=== PATIENT | female | born 1945 | race Caucasian/White ===

== ENCOUNTER → 2016-08-05 | Outpatient (CLI) | payer MEDICARE, OTHER ==
[2014-12-05 18:45] VITALS: BP 160/72
[~2016-08-05] MED LIST: AMLO10TA4 PO; ASPI81TA2 PO; CLON0.1T PO; CLON1PAT9 TD; CLOP75TA PO; CYAN1TAB28 PO; CYCL10TA2 PO; CYCL1DRO EACHEYE; CYCL1DRO OP; EZET10TA3 PO; FEXO180T81 PO; FLUT16SP NS; FLUT16SP2 NS; GABA-586 PO; GLYB2.5T2 PO; Hydrochlorothiazide PO; Isosorbide Mononitrate PO; LEVO100T5 PO; LORA0.5T96 PO; LOSA50TA2 PO; MELO7.5T5 PO; METF500T4 PO; METO100T2 PO; NITR0.4T6 SL; NYST15PO2 PO; OLAN2.5T3 PO; OMEP20TA PO; PITA2TAB2 PO; POTA10TA31 PO; SERT100T8 PO; TAPE50TA8 PO; TRAM-29 PO; VALS1TAB31 PO; VENTOLIN HFA18 GM IH
--- NOTE | 2016-08-05 23:36 | PAIN ---
DATE OF SERVICE: 08/05/2016 DIAGNOSES: Cervical radiculopathy with cervical degenerative disk disease and cervical spondylosis. HISTORY OF PRESENT ILLNESS: The patient is a 71-year-old female who returns for followup status post previous cervical epidural steroid injections, last in 12/2015. The patient did very well with these with about 50% improvement after her last injection, but the pain is returning now on the right side as it was previously on the left and left upper extremity, the right shoulder and right arm with radiating pain in the posterior aspect of the upper arm, forearm and into the hand with some tingling, numbness and some weakness in the right arm as well. The patient reports it is constant, it is hurting, twisting, sharp feeling in the right arm, base of the neck bilaterally in the upper shoulders, more on the right side as noted. The patient reports it is 8-9 on a scale of 10, worse with picking up objects, worse with using her upper extremity with any motion, even getting dressed or putting her arm through the sleeve and ____ is becoming very painful and difficult to do. Patient reports she is also waiting for MRI scan of the neck and the shoulder as she is afraid she has a rotator cuff tear. She has similar symptoms to that which she had on the left side when this occurred. The patient reports otherwise no new motor or sensory deficits, no new complaints. PHYSICAL EXAMINATION: VITAL SIGNS: Blood pressure 140/75, pulse 83, respirations 20, temperature 98.5 degrees Fahrenheit. Height 5 feet 4 inches, weighs 232 pounds. GENERAL: The patient is awake, alert, oriented, appropriate, very pleasant demeanor. HEENT: Head shows normocephalic, atraumatic. Extraocular movements intact, symmetrical. Oral cavity, mucous membranes are moist and pink. Dentition is intact. NECK: Shows anterior throat supple without palpable lymphadenopathy noted. Swallow reflex is symmetrical. BACK: Shows posterior cervical musculature with some moderate tenderness with palpation bilaterally in the middle and lower cervical paraspinous musculature without specific radiation, but with significant tenderness into the superior medial trapezius, more on the right than the left, but appears roughly symmetrical on inspection. The patient shows good rotation and motion both laterally greater than 45 degrees right and left as well as extension and flexion. EXTREMITIES: The patient's upper extremities show deep tendon reflexes at 1+ in the biceps and triceps tendons. Motor exam is approximately 4 on a scale of 5 with left it analyst and right it analyst and is symmetrical. The patient has significant tenderness with attempted ability to abduct the right shoulder past about 45 degrees with significant pain reported in the shoulder, back of the arm as well. This is also true with the shoulder shrug where it is intact and strong, but with significant pain and some loss of strength on resistance on the right side only. CHEST: Shows normal on inspection. Breath sounds clear to auscultation bilaterally. HEART: Shows S1 and S2 clear. ABDOMEN: Soft, nontender, nondistended. No palpable organomegaly is noted. PLAN: The patient's old chart was reviewed as her current medication regimen and updated. Current review of systems updated today as well and she is still currently taking her Plavix and we will check with her primary care physician to hold this as he has okayed this in the past. We will check with him once again to make sure that it is acceptable and deemed safe and appropriate to hold the Plavix for 7 days prior to cervical epidural steroid injection. The patient also will follow up with MRI scheduling for her neck and right upper extremity. We will try tramadol. The patient was given 50 mg tablets, 100 tablets to take q. 4-6h. Instructions, side effects to be aware of with the medications were also discussed. The patient will follow up once clearance is obtained from her ____ primary physician to hold the Plavix. JOVANNY AUGUSTINE MD DR: WALTER/santa JOB#: [id number] / [id number]
== END | disposition home or self-care (01) ==
LOC: PNCL 13:28
PROVIDERS: ATTEND Anesthesiology
DX: M50.10 Cervical disc disorder with radiculopathy, unspecified cervical region (principal); M47.892 Other spondylosis, cervical region
CPT/HCPCS: G0463

== ENCOUNTER → 2016-09-16 | Outpatient (CLI) | payer MEDICARE, OTHER ==
[2014-12-05 18:45] VITALS: BP 160/72
[~2016-09-16] MED LIST changes: +IOHEXOL 180 MG/ML 10 ML VIAL. ONE; +methylPREDNISolone ACETATE 40 MG/ML VIAL. ONE; +methylPREDNISolone ACETATE 80 MG/ML VIAL. ONE
--- NOTE | 2016-09-17 00:34 | PAIN ---
DATE OF SERVICE: 09/16/2016 DIAGNOSES: Cervical radiculopathy with cervical degenerative disk disease and cervical spondylosis. HISTORY OF PRESENT ILLNESS: The patient is a 71-year-old female who returns for followup status post initial evaluation and physical therapy. The patient now completed physical therapy for the last 2 weeks. She is working on strength and flexion of the right upper extremity. Reports she is unable to do most of the physical therapy secondary to pain in her arm, but she is still doing some stretching exercises, still has some significant pain in the base of the neck, right shoulder, right upper extremity, rates it at 7-8 on a scale of 10, described as aching and " nerve pain." The patient reports no new motor or sensory deficits, no new bowel or bladder incontinence or other complaints. PHYSICAL EXAMINATION: VITAL SIGNS: Today, the patient's blood pressure is 147/67, pulse 84, respirations 18, temperature 97.6 degrees Fahrenheit, height is 5 feet 4 inches, weighs 221 pounds. GENERAL: The patient is awake, alert, oriented, appropriate, very pleasant demeanor. HEENT: Head shows normocephalic, atraumatic. Extraocular movements are intact and symmetrical. The patient wears eye glasses. Oral cavity, mucous membranes moist and pink. Dentition is intact. NECK: Shows anterior throat supple without palpable lymphadenopathy noted. Swallow reflex is symmetrical. NECK: Shows good rotation and motion but with tenderness with extension, but not with forward flexion. Also inspection of the cervical paraspinous musculature appears roughly symmetrical with palpation is tender in the inferior aspect of the bilateral paraspinous musculature, inferiorly in the cervical distribution, also in the superior medial and lateral trapezius on the right more than the left, appears symmetrical though without evidence of atrophy, hypertrophy, no trigger points, no radiation of pain with palpation. CHEST: Shows normal on inspection. Breath sounds clear to auscultation bilaterally. HEART: Shows S1 and S2 clear. No murmurs are auscultated. ABDOMEN: Soft, nontender, nondistended. No palpable organomegaly is noted. EXTREMITIES: Upper extremities show deep tendon reflexes at 1+ in the biceps and triceps tendons. Motor exam is approximately 4 on a scale 5 with supervisor hydrochloric area strength bilaterally, shows decreased biceps and triceps flexion 3-4/5 on the right and 5/5 on the left. Options were discussed with the patient. The patient's old chart was reviewed as her current medication regimen and updated. Current review of systems updated today as well. We will proceed with a cervical epidural steroid injection. She has been off of her Plavix now for 7 days. Risks were again discussed including, but not limited to bleeding, infection, possibility of epidural hematoma, subsequent neurologic compromise, dural puncture, headaches, spinal cord and/or nerve damage, side effects of steroid medication and poor results regarding pain control. The patient understands and wishes to proceed. The patient will return to clinic in approximately 2 weeks for followup. She was counseled as to return appointment, activity level and side effects to be aware of. DIAGNOSES: Cervical radiculopathy with cervical degenerative disk disease and cervical spondylosis. PROCEDURE: Cervical epidural steroid injection in a translaminar approach at C6-C7 level using C-arm fluoroscopic-guidance under sterile prep and drape using local anesthetic. MEDICATIONS INJECTED: Depo-Medrol 120 mg plus 5 mL of preservative free normal saline and 2 mL Isovue for contrast. CONDITION AT DISCHARGE: Stable. The patient tolerated procedure well, had no complications. JOVANNY AUGUSTIEN MD DR: WALTER/santa JOB#: [id number] / [id number]
== END | disposition home or self-care (01) ==
LOC: PNCL 09:49
PROVIDERS: ATTEND Anesthesiology
DX: M50.123 Cervical disc disorder at C6-C7 level with radiculopathy (principal); M47.812 Spondylosis without myelopathy or radiculopathy, cervical region; E78.00 Pure hypercholesterolemia, unspecified; I10 Essential (primary) hypertension; J45.909 Unspecified asthma, uncomplicated; E66.9 Obesity, unspecified; K21.9 Gastro-esophageal reflux disease without esophagitis; E03.9 Hypothyroidism, unspecified; E11.9 Type 2 diabetes mellitus without complications; M19.90 Unspecified osteoarthritis, unspecified site; Z96.659 Presence of unspecified artificial knee joint; Z90.710 Acquired absence of both cervix and uterus; Z87.39 Personal history of other diseases of the musculoskeletal system and connective tissue; Z86.73 Personal history of transient ischemic attack (TIA), and cerebral infarction without residual deficits
CPT/HCPCS: 62321; J1030; J1040

== ENCOUNTER → 2016-10-07 | Outpatient (CLI) | payer MEDICARE, OTHER ==
[2014-12-05 18:45] VITALS: BP 160/72
--- NOTE | 2016-10-08 00:17 | PAIN ---
DATE OF SERVICE: 10/07/2016 DIAGNOSES: Cervical radiculopathy with cervical degenerative disk disease and cervical spondylosis. HISTORY OF PRESENT ILLNESS: The patient is a 71-year-old female who returns for followup status post cervical epidural steroid injection x 1. The patient reports about 25% improvement, still with some pain in the base of the neck and right upper extremity and it keeps "locking up." The patient reports still some significant pain in the right arm and neck, rates as a 7-8 on a scale of 10, was doing better until the last week or so, began to return more significantly. The patient reports no new motor or sensory deficits, no new bowel or bladder incontinence or other complaints. PHYSICAL EXAMINATION: VITAL SIGNS: The patient's blood pressure is /78, pulse 78, respirations 18, temperature 98.4 degrees Fahrenheit, height 5 feet 4 inches, weight 225 pounds. GENERAL: The patient is awake, alert, oriented, appropriate, very pleasant demeanor. HEENT: Shows normocephalic and atraumatic. Extraocular movements are intact and symmetrical. Oral cavity shows mucous membranes moist and pink. Dentition is intact. NECK: Shows anterior throat supple without palpable lymphadenopathy noted. Swallow reflex is symmetrical. CHEST: Shows normal on inspection. Breath sounds are clear to auscultation bilaterally. HEART: Shows S1 and S2 clear. ABDOMEN: Soft, nontender, nondistended. BACK: The patient's back shows spine grossly midline. Cervical paraspinous musculature shows some moderate tenderness with palpation in the inferior aspect of the cervical paraspinous musculature bilaterally and also into the right lateral and medial trapezius as well as the superior medial trapezius on the right side greater than the left, appears roughly symmetrical with inspection. No obvious atrophy or hypertrophy. No trigger points or radiation of pain. The patient does show good rotational motion of the cervical spine with some minor pain with extension, but not with forward flexion. EXTREMITIES: Upper extremities showed deep tendon reflexes 1+ in the biceps and triceps tendons. Motor exam is approximately 4 on a scale of 5 with biceps and triceps flexion, being 3-4 on the right and 4/5 on the left. Coagulating Bath Operator strength is 4/5 bilaterally. Peripheral pulses are 1+ in the radial distribution bilaterally and equal. Options were discussed with the patient at this time. The patient's old chart was reviewed as her current medication regimen and updated. Current review of systems updated today as well. We will proceed with a second cervical epidural steroid injection today with fluoroscopic guidance. Risks were again discussed including but not limited to bleeding, infection, possibility of epidural hematoma, subsequent neurologic compromise, dural puncture, headaches, spinal cord and/or nerve damage, side effects of steroid medication and poor results regarding pain control. The patient understands and wishes to proceed. The patient will return to clinic in approximately 2 weeks for followup. He was counseled on return appointment, activity level and side effects to be aware of. DIAGNOSES: Cervical radiculopathy with cervical degenerative disk disease and cervical spondylosis. PROCEDURE: Cervical epidural steroid injection in translaminar approach at the C6-C7 level using C-arm fluoroscopic guidance under sterile prep and drape using local anesthesia. MEDICATION INJECTED: Depo-Medrol 120 mg plus 5 mL of preservative-free normal saline and 2 mL of Isovue for contrast. CONDITION AT DISCHARGE: Stable. The patient tolerated procedure well, had no complications. JOVANNY AUGUSTINE MD DR: WALTER/santa JOB#: [id number] / [id number]
== END | disposition home or self-care (01) ==
LOC: PNCL 10:39
PROVIDERS: ATTEND Anesthesiology
DX: M50.123 Cervical disc disorder at C6-C7 level with radiculopathy (principal); M47.22 Other spondylosis with radiculopathy, cervical region; J45.909 Unspecified asthma, uncomplicated; E78.00 Pure hypercholesterolemia, unspecified; I10 Essential (primary) hypertension; E66.9 Obesity, unspecified; E03.9 Hypothyroidism, unspecified; E11.9 Type 2 diabetes mellitus without complications; K21.9 Gastro-esophageal reflux disease without esophagitis; E05.90 Thyrotoxicosis, unspecified without thyrotoxic crisis or storm; Z90.710 Acquired absence of both cervix and uterus
CPT/HCPCS: 62321; J1030; J1040

== ENCOUNTER → 2016-11-05 | Outpatient (CLI) | payer MEDICARE, OTHER ==
[2014-12-05 18:45] VITALS: BP 160/72
--- NOTE | 2016-11-06 02:18 | PAIN ---
DATE OF SERVICE: 11/05/2016 PROGRESS NOTE FOR PAIN CLINIC DIAGNOSES: Cervical radiculopathy with cervical degenerative disk disease and cervical spondylosis. HISTORY OF PRESENT ILLNESS: A 71-year-old female who returns for followup status post cervical epidural steroid injection x 2. The patient reports that she did fairly well after last injection with about 25-30% improvement. Still some pain in the base of the neck and shoulders, worse on the neck in the left. Both arms feel weak. Also some tenderness in the shoulders, which grabs in the muscles at times. The patient reports she is having a fairly good pain day today with the neck and shoulders and overall the patient reports no new motor or sensory deficits, no new complaints. They are cramping binding type and aching sensation. The patient reports no other changes. PHYSICAL EXAMINATION: VITAL SIGNS: The patient's blood pressure 116/58, pulse 88, respirations are 18, temperature 99.7 degrees Fahrenheit, weight is 227 pounds. GENERAL: The patient is awake, alert, oriented, appropriate, very pleasant demeanor. HEENT: Head shows normocephalic, atraumatic. Extraocular muscles are intact and symmetrical. Oral cavity, mucous membranes are moist and pink. Dentition is intact. NECK: Shows anterior throat supple without palpable lymphadenopathy noted. Swallow reflex is symmetrical. CHEST: Shows normal on inspection. HEART: Shows S1 and S2 clear. No murmurs auscultated. ABDOMEN: Soft, nontender, nondistended. No palpable organomegaly. BACK: The patient's back shows spine grossly in the midline. Slight exaggeration of thoracic kyphosis and normal appearance of the cervical lordotic curvature. The patient's neck shows posterior cervical musculature with some moderate tenderness with palpation bilaterally, but only diffusely in the cervical paraspinous musculature, mainly in the middle and lower distribution without significant atrophy, hypertrophy or asymmetry. The patient shows good rotational motion with some minor guarding with extension, but not with forward flexion. EXTREMITIES: Upper extremity show deep tendon reflexes at 1+ in the biceps and triceps tendons and equal. Motor exam is approximately 4 on a scale of 5 with right bicep and tricep and 5/5 on the left. Options were discussed with the patient and the patient's old chart was reviewed as her current medication regimen updated. Current review of systems updated today as well. We will proceed with third cervical epidural steroid injection in the series with fluoroscopic guidance. Risks were again discussed including, but not limited to bleeding, infection, possibility of epidural hematoma, subsequent neurologic compromise, dural puncture, headaches, spinal cord and/or nerve damage, side effects of steroid medication and poor results regarding pain control. The patient understands and wishes to proceed. The patient will return to clinic in approximately 2 weeks for followup, was counseled on return appointment, activity level and side effects to be aware of. DIAGNOSIS: Cervical radiculopathy with cervical spondylosis and cervical degenerative disk disease. PROCEDURE: Cervical epidural steroid injection in translaminar approach at C6-C7 level using C-arm fluoroscopic guidance under sterile prep and drape using local anesthetic. Medications injected are 120 mg Depo-Medrol plus 5 mL of preservative-free normal saline and 2 mL of Isovue contrast. CONDITION AT DISCHARGE: Stable. The patient tolerated procedure well, had no complications. JOVANNY AUGUSTINE MD DR: WALTER/santa JOB#: [id number] / [id number]
== END | disposition home or self-care (01) ==
LOC: PNCL 12:44
PROVIDERS: ATTEND Anesthesiology
DX: M50.123 Cervical disc disorder at C6-C7 level with radiculopathy (principal); E78.00 Pure hypercholesterolemia, unspecified; I10 Essential (primary) hypertension; J45.909 Unspecified asthma, uncomplicated; E66.9 Obesity, unspecified; M19.90 Unspecified osteoarthritis, unspecified site; E11.9 Type 2 diabetes mellitus without complications; E03.9 Hypothyroidism, unspecified; Z86.73 Personal history of transient ischemic attack (TIA), and cerebral infarction without residual deficits; Z96.659 Presence of unspecified artificial knee joint; Z90.710 Acquired absence of both cervix and uterus
CPT/HCPCS: 62321; J1030; J1040

== ENCOUNTER → 2018-04-23 | Outpatient (CLI) | payer OTHER ==
[2014-12-05 18:45] VITALS: BP 160/72
[~2018-04-23] MED LIST changes: +ASPI-630 PO; -ASPI81TA2 PO; +EZET10TA18 PO; -EZET10TA3 PO; +LIDOCAINE 2% PF 2ML VIAL. ONE; +METF500T16 PO; -METF500T4 PO; -METO100T2 PO; +METO100T7 PO; +NITR0.4T22 SL; -NITR0.4T6 SL; -OMEP20TA PO; +OMEP20TA8 PO; +TAPE50TA10 PO; -TAPE50TA8 PO; -TRAM-29 PO; +TRAM-48 PO
--- NOTE | 2018-04-24 04:01 | PAIN ---
DATE OF SERVICE: 04/23/2018 DIAGNOSES: Cervical radiculopathy with cervical degenerative disk disease and cervical spondylosis. HISTORY OF PRESENT ILLNESS: The patient is a 73-year-old female who returns for followup status post previous cervical epidural steroid injections, last seen October 2016. The patient did very well, and reports about a 65% improvement after the last injection, which again was about a year and a half ago. The patient reports now the pain is returning in the base of her neck and shoulder, mostly in the right posterior upper back, right shoulder, right arm, radiates to the posterior and anterior aspects of the arm, mostly in the triceps and lateral aspect into the forearm posteriorly into the hands with numbness and tingling in the fingers. The patient reports it is cramping, shooting, stabbing, sometimes sharp, dull, alternating, worse with activity, worse with using the right upper extremity with repetitive motions, even raising her hand up over her head such as getting dressed is becoming more painful. The patient reports it awakens her from sleep about every 5 hours if she lays on her right side. The patient reports no new motor or sensory deficit. She also has some pain complaints in her low back and reports that she has had an MRI. We are trying to track this down to see the results of it prior to her next visit. The patient reports no new motor or sensory deficits. Reports her pain is an 8 on a scale of 10 at its worst, 6 is average and 3 at its least and is a 4 today. The patient reports no bowel or bladder incontinence. PHYSICAL EXAMINATION: VITAL SIGNS: The patient's blood pressure is 140/70, pulse 80, temperature 98.3 degrees Fahrenheit, respirations 18. Height is 5 feet 3 inches and weight is 228 pounds. GENERAL: She is awake, alert, oriented, appropriate, very pleasant demeanor. HEENT: Head shows normocephalic, atraumatic. Extraocular movements intact and symmetrical. The patient wears eye glasses. Oral cavity: Mucous membranes moist and pink. Dentition is intact. NECK: Shows anterior throat supple without palpable lymphadenopathy noted. Swallow reflex is symmetrical. CHEST: Shows normal with inspection. Breath sounds clear to auscultation bilaterally. HEART: Shows S1, S2 clear. No murmurs auscultated. ABDOMEN: Soft, nontender, nondistended. No palpable organomegaly is noted. No rebound or guarding demonstrated. BACK: Shows spine grossly in the midline. Slight exaggeration of thoracic kyphosis, minor flattening of the cervical lordotic curvature as well as lumbar lordotic curvature. Cervical paraspinous muscle shows symmetrical on inspection, on palpation shows some moderate tenderness bilaterally but only diffusely without trigger points, without radiation. The patient has good rotational motion of the cervical spine, both laterally greater than 45 degrees closer to 90 degrees, right and left lateral as well as full extension, full forward flexion without difficulty. EXTREMITIES: The patient's upper extremities show deep tendon reflexes at 1+ in the biceps and triceps tendons. Motor exam is approximately 4 on a scale of 5 with right cattle dehorner strength and 5/5 on the left. Peripheral pulses are 2+ radial distribution. No peripheral edema is noted bilaterally. Options were discussed with the patient. The patient's old chart was reviewed, her current medication regimen updated. Current review of systems updated today as well. We will proceed with a cervical epidural steroid injection today with fluoroscopic guidance. Risks were again discussed including, but not limited to bleeding, infection, possibility of epidural hematoma, subsequent neurological compromise, dural puncture, headaches, spinal cord and/or nerve damage, side effects of steroid medication and poor results regarding pain control. The patient understands and wished to proceed. The patient to return to clinic in approximately 2 weeks for followup. She was counseled of return appointment, activity level and side effects to be aware of. DIAGNOSES: Cervical radiculopathy with cervical degenerative disk disease and cervical spondylosis. PROCEDURE: Cervical epidural steroid injection, translaminar approach, C6-C7 level using C-arm fluoroscopic guidance under sterile prep and drape using local anesthetic. MEDICATION INJECTED: A total of 120 mg of Depo-Medrol plus 5 mL of preservative-free normal saline and 2 mL of Isovue for contrast. CONDITION AT DISCHARGE: Stable. The patient tolerated the procedure well, had no complications. JOVANNY AUGUSTINE MD DR: WALTER/santa JOB#: [id number] / [id number]
== END | disposition home or self-care (01) ==
LOC: PNCL 14:00
PROVIDERS: ATTEND Anesthesiology
DX: M50.123 Cervical disc disorder at C6-C7 level with radiculopathy (principal); M47.22 Other spondylosis with radiculopathy, cervical region; I10 Essential (primary) hypertension; E03.9 Hypothyroidism, unspecified; E66.9 Obesity, unspecified; Z86.73 Personal history of transient ischemic attack (TIA), and cerebral infarction without residual deficits; E78.00 Pure hypercholesterolemia, unspecified; E11.9 Type 2 diabetes mellitus without complications; J45.909 Unspecified asthma, uncomplicated; M19.90 Unspecified osteoarthritis, unspecified site; K21.9 Gastro-esophageal reflux disease without esophagitis; Z98.890 Other specified postprocedural states; Z79.899 Other long term (current) drug therapy; Z96.659 Presence of unspecified artificial knee joint; Z90.710 Acquired absence of both cervix and uterus
CPT/HCPCS: 62321; J1030; J1040; J2001; Q9965

== ENCOUNTER → 2018-05-28 | Outpatient (CLI) | payer OTHER ==
[2014-12-05 18:45] VITALS: BP 160/72
[~2018-05-28] MED LIST changes: -IOHEXOL 180 MG/ML 10 ML VIAL. ONE; -LIDOCAINE 2% PF 2ML VIAL. ONE; -methylPREDNISolone ACETATE 40 MG/ML VIAL. ONE; -methylPREDNISolone ACETATE 80 MG/ML VIAL. ONE
--- NOTE | 2018-05-28 14:58 | CARD ---
MR#: [id number] Date of Study: 05/28/2018 Ordering Physician: GUZMAN HART, Referring Physician: GUZMAN HART, Tech: Deepthi Mireles APPROVED REPORT EXAM: Two-dimensional and M-mode echocardiogram with Doppler and color Doppler. Other Information Quality : AverageHR: 69bpm INDICATION Valvular heart disease RISK FACTORS Hypertension Hyperlipidemia Diabetes 2D DIMENSIONS Left Atrium(2D)3.1 (1.6-4.0cm)IVSd1.4 (0.7-1.1cm) Aortic Root(2D)3.4 (2.0-3.7cm)LVDd3.3 (3.9-5.9cm) LVOT Diameter2.1 (1.8-2.4cm)PWd1.0 (0.7-1.1cm) LVDs2.2 (2.5-4.0cm)FS (%) 34.3 % SV28.5 mlLVEF(%)64.6 (>50%) Aortic Valve AoV Peak Casper.171.2cm/sAoV VTI40.4cm AO Peak GR.11.7mmHgLVOT Peak Casper.126.6cm/s AO Mean GR.8mmHgAVA (VMAX)2.51cm2 Mitral Valve MV E Tteujhyu042.9cm/sMV DECEL ARGZ259bs MV A Ztcdqegb065.1cm/sE/A Ratio0.8 Pulmonary Valve PV Peak Yzchzbzj39.6cm/s Tricuspid Valve TR P. Yskwktxp658lz/sRAP [id number] TR Peak Gr.79xfFnYTTR63tdOk Pulmonary Vein PVa [id number] LEFT VENTRICLE The left ventricle is normal size. There is mild concentric left ventricular hypertrophy. The left ve ntricular systolic function is normal and the ejection fraction is within normal range. The Ejection Fraction is 55-60%. There is normal LV segmental wall motion. Transmitral Doppler flow pattern is Gra de I-abnormal relaxation pattern. RIGHT VENTRICLE The right ventricle is normal size. There is normal right ventricular wall thickness. The right ventr icular systolic function is normal. ATRIA The left atrium is moderately dialted. The right atrium size is normal. The interatrial septum is int act with no evidence for an atrial septal defect or patent foramen ovale as noted on 2-D or Doppler i maging. AORTIC VALVE The aortic valve is mildly to moderately thickened. Doppler and Color Flow revealed trace to mild aor tic regurgitation. There is no significant aortic valvular stenosis. MITRAL VALVE Mitral annular calcification is moderate. There is no mitral valve stenosis. Doppler and Color-flow r evealed trace mitral regurgitation. TRICUSPID VALVE The tricuspid valve is not well visualized. Doppler and Color Flow revealed trace tricuspid regurgita tion. There is no tricuspid valve stenosis. PULMONIC VALVE The pulmonic valve is not well visualized. Doppler and Color Flow revealed trace pulmonic valvular re gurgitation. There is no pulmonic valvular stenosis. GREAT VESSELS The aortic root is normal in size. The IVC is normal in size and collapses >50% with inspiration. PERICARDIAL EFFUSION There is no evidence of significant pericardial effusion. Critical Notification Critical Value: No <Conclusion> The left ventricular systolic function is normal and the ejection fraction is within normal range. Th e Ejection Fraction is 55-60%. There is normal LV segmental wall motion. Signed by : Guzman Hart, Electronically Approved : 05/28/2018 14:57:10
== END | disposition home or self-care (01) ==
LOC: ECHO 12:38
PROVIDERS: ATTEND Internal Medicine Cardiovascular Disease
DX: I35.1 Nonrheumatic aortic (valve) insufficiency (principal); I38 Endocarditis, valve unspecified; I10 Essential (primary) hypertension; E78.5 Hyperlipidemia, unspecified; E11.9 Type 2 diabetes mellitus without complications
CPT/HCPCS: 93306

== ENCOUNTER → 2018-06-29 | Outpatient (CLI) | payer OTHER ==
[2014-12-05 18:45] VITALS: BP 160/72
[~2018-06-29] MED LIST changes: -GABA-586 PO; +GABA300C18 PO; +LOSA-73 PO; -LOSA50TA2 PO
--- NOTE | 2018-06-29 11:20 | KCIC ---
MR of the right shoulder Indication: Chronic right shoulder pain and suspected dislocations the last 2 months. Primary osteoarthritis.. Comparison: None are available. Technique: Standard multiplanar sequences are obtained. Findings: Artifact: Moderate motion degradation despite repeating scans. Acromioclavicular joint: Degenerative, mildly hypertrophic. Rotator cuff: * Supraspinatus-infraspinatus tendon: Moderate thickening and signal heterogeneity compatible with tendinosis. Partial-thickness undersurface tear of the supraspinatus tendon, measures 7 mm AP diameter by no more than 20%. No large full-thickness rotator cuff rupture or retraction. * Subscapularis tendon: Tendinosis, no high-grade tear * Muscle bulk: Moderate atrophy * Subacromial subdeltoid bursa: No significant effusion. Fluid: Small glenohumeral effusion. Small Glenohumeral cartilage: Severe primary osteoarthritis. There is flattening of the humeral head with subchondral signal likely degenerative, difficult to exclude osteonecrosis. Flattening and volume loss glenoid. Bone densities at the axillary recess compatible with large osteophytes versus loose bodies. Labrum: Suboptimally examined due to the motion degradation cannot exclude tear Biceps tendon: Poorly evaluated. No obvious aggressive bone destruction or acute fracture. Bones: No lesion or acute fracture. Soft tissue: No acute findings.. Impression: 1. Moderate motion degradation may compromise exam accuracy. 2. Severe primary glenohumeral joint osteoarthritis. 3. Rotator cuff tendinosis. There is a small undersurface tear of the supraspinatus tendon, no large full-thickness or retracted rotator cuff tear. Electronically signed by: Adelfo Greene MD (06/29/2018 11:17 AM) [facility]
== END | disposition home or self-care (01) ==
LOC: KCIC MRI 08:43
PROVIDERS: ATTEND Orthopaedic Surgery Sports Medicine
DX: M19.011 Primary osteoarthritis, right shoulder (principal); M75.81 Other shoulder lesions, right shoulder; M75.101 Unspecified rotator cuff tear or rupture of right shoulder, not specified as traumatic; M25.411 Effusion, right shoulder
CPT/HCPCS: 73221

== ENCOUNTER → 2018-08-21 | Outpatient (CLI) | payer OTHER ==
[2014-12-05 18:45] VITALS: BP 160/72
[~2018-08-21] MED LIST changes: +ALBU2.5V8 INH; +FLUT9.9S NS; +HYDR-2761 PO; +METO-247 PO; +SPIR25TA5 PO; +SUCR1TAB PO
--- NOTE | 2018-08-21 16:19 | EKG ---
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 Electronically Signed On 08-24-2018 9:55:45 SUBSTATION MECHANIC by Sridhar Zaldivar
--- NOTE | 2018-08-21 16:49 | RAD ---
EXAM: Chest, 2 views. HISTORY: Hypertension. COMPARISON: None. FINDINGS: 2 views of the chest are obtained. There is no infiltrate, pleural effusion or pneumothorax. The heart is normal in size. There is a left shoulder joint loose body. There is left glenohumeral osteoarthritis. IMPRESSION: No acute pulmonary finding. Electronically signed by: Yovana Way MD (08/21/2018 4:44 PM) [facility]
[2018-08-21 17:14] LABS: PROTHROMBIN TIME PATIENT 13.3 SEC (11.7-14.0)
== END | disposition home or self-care (01) ==
LOC: EDSTATUS 13:30 → SURGPAT 14:29
PROVIDERS: ATTEND Orthopaedic Surgery
DX: Z01.818 Encounter for other preprocedural examination (principal); M19.012 Primary osteoarthritis, left shoulder; M24.012 Loose body in left shoulder; I10 Essential (primary) hypertension
CPT/HCPCS: 36415; 71046; 85610; 85651; 85730; 87086; 87186; 87641; 93005

== ENCOUNTER → 2018-08-21 | Outpatient (CLI) | payer OTHER ==
[2014-12-05 18:45] VITALS: BP 160/72
[~2018-08-21] MED LIST changes: +CIPR250T30 PO
== END | disposition home or self-care (01) ==
LOC: LAB 14:48
PROVIDERS: ATTEND Internal Medicine Cardiovascular Disease
DX: I11.0 Hypertensive heart disease with heart failure (principal); I50.9 Heart failure, unspecified
CPT/HCPCS: 36415; 83880

== ENCOUNTER 2018-10-06 06:58 | Inpatient (IN) | payer OTHER ==
[~2018-10-06] VITALS: Ht 157.5 cm; Wt 110.3 kg
[2018-10-06] VITALS (11 sets, daily range): BP systolic 91–152; BP diastolic 50–80
[~2018-10-06 06:58] MED LIST changes: +HYDROcodone/APAP 7.5/325MG 1 TAB TABLET PO PRN
[2018-10-06] MEDS ORDERED: IV RINGERS,LACTATED 1000ML 1,000 ML IV SCH (07:00)
[2018-10-06] MEDS ORDERED: MORPHINE SULFATE 2 MG/ML VIAL. IV PRN ×2 (07:00→12:30)
[2018-10-06] MEDS: LEVOTHYROXINE 100 MCG TABLET PO SCH (07:00)
[2018-10-06] MEDS ORDERED: PROCHLORPERAZINE 10 MG/2 ML VIAL. IV PRN (07:00)
[2018-10-06] MEDS ORDERED: HYDROmorphone 2 MG/ML VIAL IV PRN (07:00)
[2018-10-06] MEDS ORDERED: fentaNYL PF VIAL 100 MCG/2 ML VIAL IV PRN ×2 (07:00)
[2018-10-06] MEDS ORDERED: LIDOCAINE 1% PF 2 ML VIAL. ID PRN (07:00)
[2018-10-06] MEDS ORDERED: ONDANSETRON PF 4 MG/2 ML VIAL. IV PRN (07:00)
[2018-10-06] MEDS ORDERED: ROPIVacaine 0.5% PF 20 ML VIAL. ONE (07:55)
[2018-10-06] MEDS ORDERED: PROPOFOL 20 ML IV ONE (07:57)
[2018-10-06] MEDS ORDERED: DEXAMETHASONE SOD PHOS 20 MG/5 ML VIAL. ONE (07:57)
[2018-10-06] MEDS ORDERED: fentaNYL PF VIAL 100 MCG/2 ML VIAL ONE (07:57)
[2018-10-06] MEDS ORDERED: ROCURONIUM 50 MG/5 ML VIAL. ONE ×2 (07:57)
[2018-10-06] MEDS ORDERED: SUCCINYLCHOLINE 200 MG/10 ML VIAL. ONE (08:05)
[2018-10-06] MEDS ORDERED: MIDAZOLAM HCL/PF 2 MG/2 ML VIAL. ONE (08:24)
[2018-10-06 08:29] LABS: PROTHROMBIN TIME PATIENT 12.7 SEC (11.7-14.0)
[2018-10-06] MEDS ORDERED: GLYCOPYRROLATE 1 MG/5 ML VIAL. ONE (09:09)
[2018-10-06] MEDS ORDERED: SEVOFLURANE > 120 MINUTES. IH ONE (09:24)
[2018-10-06] MEDS ORDERED: NEOSTIGMINE METHYLSULFATE 5 MG/5 ML SYRINGE. ONE (09:24)
[2018-10-06] MEDS ORDERED: INSULIN LISPRO 100 UNIT/ML 3ML VIAL. SQ PRN (12:00)
[2018-10-06] MEDS ORDERED: traMADol 50 MG TABLET PO PRN ×2 (12:30)
[2018-10-06] MEDS ORDERED: DEXTROSE 50% 25 GM / 50ML DISP.SYRIN. IV PRN (12:30)
[2018-10-06] MEDS ORDERED: oxyCODONE/APAP 7.5/325 1 TAB TABLET PO PRN (12:30)
[2018-10-06] MEDS ORDERED: HYDROcodone/APAP 7.5/325MG 1 TAB TABLET PO PRN (12:30)
[2018-10-06] MEDS ORDERED: ACETAMINOPHEN 325 MG TABLET. PO PRN (12:30)
[2018-10-06] MEDS ORDERED: HYDROcodone/APAP 10/325 1 TAB TABLET PO PRN (12:30)
[2018-10-06] MEDS ORDERED: PROCHLORPERAZINE 5 MG TABLET. PO PRN (12:30)
[2018-10-06] MEDS ORDERED: 0.9 % SODIUM CHLORIDE 10 ML DISP.SYRIN. IV PRN (12:30)
[2018-10-06] MEDS ORDERED: ZOLPIDEM 5 MG TABLET. PO PRN (12:30)
--- NOTE | 2018-10-06 12:57 | RAD ---
EXAM: 2 views right shoulder DATE: 10/06/2018 12:40 PM INDICATION: POST OP RT SHOULDER COMPARISON: No Prior FINDINGS: Changes of reverse right total shoulder arthroplasty, in good alignment without definite hardware complication. Linear lucency is seen extending to the base of the greater tuberosity the region of the cerclage wires, likely undisplaced fracture. Components are well seated without periprosthetic lucency. Linear opacities right midlung likely scarring/atelectasis. IMPRESSION: 1. Postoperative changes of the first metatarsal arthroplasty, in good alignment. An essentially nondisplaced fracture is seen through the suspected right greater tuberosity with associated cerclage wires. Electronically signed by: Brendan Jones MD (10/06/2018 12:54 PM) [facility]
--- NOTE | 2018-10-06 13:12 | NUR ---
Arrived to unit by bed from PACU. Right shoulder dressing d/i. Right arm in a sling and elevated on pillow. Pt able to wiggle fingers, warm to touch and radial pulse +. No c/o numbness or tingling. IVF's intact and infusing. O2 at 2l per n/c. GASPER's and SCD's on bilaterally. Side rails up x's 2 with call light in reach. Family at bedside. Cont. monitor.
[2018-10-06] MEDS: IV DEXTROSE 5 %-0.45 % NACL 1,000 ML IV SCH (14:00)
[2018-10-06] MEDS: oxyCODONE/APAP 5/325 1 TAB TABLET PO PRN (14:52)
[2018-10-06] MEDS: FERROUS SULFATE 325 MG TABLET. PO SCH (17:17)
[2018-10-06] MEDS: metFORMIN 500 MG TABLET PO SCH (17:17)
[2018-10-06] MEDS: KETOROLAC TROMETHAMINE 10 MG TABLET PO SCH ×2 (17:17→23:36)
--- NOTE | 2018-10-06 17:45 | NUR ---
Ambulated to bathroom with assistance x's 2. Voided without difficulty. Up in chair with call light in reach. Cont. monitor.
--- NOTE | 2018-10-06 18:19 | PDOC4 ---
Operative Note Operative Note Date of surgery: 10/06/2018 Preoperative diagnosis: Suspected right rotator cuff arthropathy with severe degenerative glenohumeral changes Postoperative diagnosis: Confirmed rotator cuff arthropathy Operative procedure: Right reverse shoulder arthroplasty with cables 2 of periprosthetic fracture Surgeon: Serjio Anesthesia: Gen. Estimated blood loss: 100 mL Complications: Periprosthetic fracture treated with cables Specimens: Humeral cartilage surface sent for pathologic evaluation Operative indications: Please see my preoperative history and physical for detailed operative indications and notes that she has severe pain very limited range of motion very little strength difficulty sleeping severe degenerative changes with suspected rotator cuff arthropathy I gone over with her operative treatment options since she is no longer getting any relief from activity restriction and injections among other treatment. We talked about the possibility of total versus reverse shoulder arthroplasty depending on a rotator cuff condition and findings intraoperatively. We had covered the possibility of instability nerve or blood vessel damage medical or other anesthetic complications among others all her questions were answered she wishes to proceed with surgical evaluation and treatment Operative text: Patient was identified procedure verified patient placed in the supine position on the operating table. After adequate amounts of general anesthesia were administered she was placed in the semi-beachchair position with the spider arm mcdonald all bony prominences were well-padded and the right shoulder was prepped and draped in standard sterile fashion. After timeout was performed patient procedure identified and verified a deltopectoral approach was carried out cephalic vein was taken laterally deltoid was elevated distally and the subscapularis was elevated along with the anterior capsule which was eventually . Rotator cuff was noted to have significant compromise and therefore reverse shoulder arthroplasty was selected intramedullary guide was drilled to a size 12 at a 130 mm depth. Proximal reaming was carried out and she had very significant deformity of the humeral head capsular release was carried out but she remained quite tight nevertheless good exposure to the glenoid was accomplished and a guidewire was drilled inferior with slight declination reaming was carried out in her very sclerotic bone which was drilled to increase blood flow and ingrowth. Some bone graft from the humeral head was placed to fill in some of the dished out bone as I was concerned about further bone loss with excessive reaming. A standard 15 mm baseplate was placed excellent screw fixation was carried out into the scapular spine and to the base of the coracoid both screws were locked and trialing was carried out with a 36 mm glenoid impacted onto the Coy taper trial fit with a +3 standard liner. Unfortunately on bringing the arm into external rotation to exchange the trial stem for the permanent stem and liner the fracture occurred posteriorly. This was reinforced by a total of 22 mm stainless steel cables and the size 12 nonporous 130 mm stem length humeral stem was impacted into place in about 15 version with a +3 mm offset 36 mm polyethylene liner the cerclage cables 1.8 mm were tensioned tightened and excess cables were removed. Excellent stability was noted throughout her entire range of motion which was not constrained. Thorough irrigation carried out normal saline solution the superior aspect the pectoralis was repaired with #5 Ethibond suture fascia was closed with #2 Vicryl suture skin closure with dominga sterile dressings were applied patient was placed in a sling returned to recovery room in stable condition having tolerated procedure well LUIS MARINELLI MD Oct 06, 2018 18:19
--- NOTE | 2018-10-06 18:40 | HP ---
ADMIT DATE: 10/06/2018 CHIEF COMPLAINT: Right shoulder pain, stiffness, and weakness. HISTORY OF PRESENT ILLNESS: The patient has detailed in my preoperative clinic note many years of right shoulder pain, progressive difficulties with function. She hurts with sleep and has very limited movement, difficulty lifting away from her side, has constant grinding and has gotten poor relief from previous corticosteroid injections, the last 2 which seems to hurt more than they helped. PAST MEDICAL HISTORY: Significant for type 2 diabetes mellitus, hypertension, heart murmur, TIAs, asthma, hyperlipidemia, scleroderma, hypothyroidism, Sjogren's disease, fibromyalgia, back pain, reflux disease, inflammatory bowel syndrome, esophageal strictures, arthritis and obstructive sleep apnea. PAST SURGICAL HISTORY: Partial hysterectomy, appendectomy, left knee replacement, back surgery, retina surgery, cataract surgery, thoracic outlet surgery. FAMILY HISTORY: Hypertension in her mother, otherwise healthy siblings and children. SOCIAL HISTORY: Denies smoking, alcohol or drug use. , lives alone. MEDICATIONS: List is reviewed. ALLERGIES: INCLUDE TALWIN, SULFA AND MIRALAX. REVIEW OF SYSTEMS: Denies any chest pain, shortness of breath, recent fever, chills, constitutional symptoms, or other problems. PHYSICAL EXAMINATION: VITAL SIGNS: Temperature 97.5, pulse 76, 97% saturation on oxygen, respirations 20, blood pressure 143/60. HEENT: Atraumatic, normocephalic. HEART: Regular rate and rhythm. LUNGS: Clear to auscultation bilaterally. ABDOMEN: Benign. EXTREMITIES: Examination of the right shoulder reveals very limited range of motion and pseudoparalysis. She has pain on her already extremely limited range of motion, significant grinding. No instability. Normal parascapular motion. Normal examination of the contralateral shoulder, bilateral elbows and wrist. IMAGING: X-rays show severe degenerative change of the glenohumeral joint. IMPRESSION: Right shoulder rotator cuff arthropathy, severe degenerative changes. TREATMENT PLAN: I had previously gone over with her the possibility of operative treatment including possibility of total shoulder arthroplasty versus reverse shoulder arthroplasty based on her integrity of her rotator cuff. She wishes to proceed with surgical evaluation and treatment and previously covered the risks, benefits, postoperative course of surgical treatment, the possibility of infection, instability, continued pain, nerve or blood vessel damage, medical or other anesthetic complications among others. All her questions were answered and she does wish to proceed with surgery today and [facility] admission to follow up. LUIS MARINELLI MD DR: MILDRED/santa JOB#: [id number] / [id number]
[2018-10-06] MEDS: SUCRALFATE 1 GM TABLET. PO SCH (20:51)
[2018-10-06] MEDS: GABAPENTIN 300 MG CAPSULE. PO SCH (20:51)
[2018-10-06] MEDS: SPIRONOLACTONE 25 MG TABLET PO SCH (23:54)
[2018-10-07] MEDS: oxyCODONE/APAP 5/325 1 TAB TABLET PO PRN ×2 (02:54→08:33)
[2018-10-07 03:05] VITALS: BP 123/62
[2018-10-07] MEDS: KETOROLAC TROMETHAMINE 10 MG TABLET PO SCH ×3 (05:53→17:03)
[2018-10-07] MEDS ORDERED: MAGNESIUM HYDROXIDE 2,400 MG/30 ML ORAL.SUSP. PO PRN (06:00)
[2018-10-07 06:33] VITALS: BP 117/68
--- NOTE | 2018-10-07 06:59 | NUR ---
pt voiding small amount of urine 25-50 ml during the night,changed depends 4x with small to moderate amount of urine.
[2018-10-07] MEDS: PANTOPRAZOLE 40 MG TABLET.DR. PO SCH (07:05)
[2018-10-07] MEDS: LEVOTHYROXINE 100 MCG TABLET PO SCH (07:05)
[2018-10-07] MEDS: METOPROLOL SUCC 24HR ER 100 MG TAB.ER.24H. PO SCH (08:30)
[2018-10-07] MEDS: SPIRONOLACTONE 25 MG TABLET PO SCH ×2 (08:30→20:41)
[2018-10-07] MEDS: amLODIPine BESYLATE 10 MG TABLET PO SCH (08:30)
[2018-10-07] MEDS: ASPIRIN CHEWABLE 81 MG TABLET. PO SCH (08:32)
[2018-10-07] MEDS: FERROUS SULFATE 325 MG TABLET. PO SCH ×2 (08:32→17:03)
[2018-10-07] MEDS: MULTIVITAMIN with MINERAL TABLET. PO SCH (08:32)
[2018-10-07] MEDS: LOSARTAN POTASSIUM 50 MG TABLET. PO SCH (08:32)
[2018-10-07] MEDS: GABAPENTIN 300 MG CAPSULE. PO SCH ×3 (08:32→20:41)
[2018-10-07] MEDS: metFORMIN 500 MG TABLET PO SCH ×2 (08:32→17:03)
[2018-10-07 08:33] VITALS: BP 106/64
[2018-10-07] MEDS: SENNOSIDES/DOCUSATE 8.6/50MG TABLET. PO SCH (08:33)
[2018-10-07] MEDS: SUCRALFATE 1 GM TABLET. PO SCH ×2 (08:33→20:41)
[2018-10-07] MEDS: SERTRALINE 50 MG TABLET. PO SCH (08:37)
[2018-10-07] MEDS: IV DEXTROSE 5 %-0.45 % NACL 1,000 ML IV SCH ×3 (10:00→20:05)
[2018-10-07 11:06] VITALS: BP_SYST 11; BP_SYST 110; BP_DIAS 49
[2018-10-07] MEDS ORDERED: BISACODYL 10 MG SUPP.RECT. PR PRN (16:00)
[2018-10-07] MEDS: CALCIUM CARBONATE 500 MG TAB.CHEW PO PRN (17:43)
--- NOTE | 2018-10-07 17:45 | PDOC ---
PROGRESS NOTES Subjective Subjective Problems overnight: Pain worse immediately postoperatively due to block not working, now pain better controlled today Objective Vital Signs Vital Signs Date Time Temp Pulse Resp B/P (MAP) Pulse Ox O2 Delivery O2 Flow Rate FiO2 10/07/18 11:06 98.9 80 18 11/49 (36) 95 Room Air 98.9 10/07/18 06:33 2.0 Physical Exam Distal neurovascular status intact including function motor sensory of axillary nerve dressing clean dry intact Labs Laboratory Tests Test 10/06/18 07:42 10/06/18 07:47 10/06/18 13:04 10/06/18 16:27 Prothrombin Time 12.7 SEC (11.7-14.0) Prothromb Time International Ratio 1.0 (0.8-1.1) Activated Partial Thromboplast Time 31 SEC (24-38) Glucose (Fingerstick) 130 mg/dL (70-99) 177 mg/dL (70-99) 165 mg/dL (70-99) Test 10/06/18 20:33 10/07/18 06:18 10/07/18 11:08 10/07/18 16:21 Glucose (Fingerstick) 199 mg/dL (70-99) 153 mg/dL (70-99) 149 mg/dL (70-99) 122 mg/dL (70-99) Laboratory Tests Test 10/06/18 20:33 10/07/18 06:18 10/07/18 11:08 10/07/18 16:21 Glucose (Fingerstick) 199 mg/dL (70-99) 153 mg/dL (70-99) 149 mg/dL (70-99) 122 mg/dL (70-99) Assessment Assessment POD# [1], S/P [right reverse shoulder arthroplasty] Plan Plan of Care Continue physical therapy with reverse shoulder precautions Plan home with likely outpatient physical therapy on discharge LUIS MARINELLI MD Oct 07, 2018 17:45
[2018-10-07 17:46] VITALS: BP 115/49
--- NOTE | 2018-10-07 18:34 | NUR ---
patient given a Dulcolax Supp per her request for "complaints of bloating". family here to visit
[2018-10-08] MEDS: KETOROLAC TROMETHAMINE 10 MG TABLET PO SCH ×4 (02:09→17:05)
[2018-10-08 05:59] VITALS: BP 145/67
[2018-10-08] MEDS: PANTOPRAZOLE 40 MG TABLET.DR. PO SCH (06:25)
[2018-10-08] MEDS: LEVOTHYROXINE 100 MCG TABLET PO SCH (06:26)
[2018-10-08] MEDS: SERTRALINE 50 MG TABLET. PO SCH (08:04)
[2018-10-08] MEDS: SENNOSIDES/DOCUSATE 8.6/50MG TABLET. PO SCH (08:04)
[2018-10-08] MEDS: MULTIVITAMIN with MINERAL TABLET. PO SCH (08:04)
[2018-10-08] MEDS: SUCRALFATE 1 GM TABLET. PO SCH (08:04)
[2018-10-08] MEDS: FERROUS SULFATE 325 MG TABLET. PO SCH ×2 (08:04→17:05)
[2018-10-08] MEDS: metFORMIN 500 MG TABLET PO SCH ×2 (08:04→17:05)
[2018-10-08] MEDS: ASPIRIN CHEWABLE 81 MG TABLET. PO SCH (08:04)
[2018-10-08] MEDS: GABAPENTIN 300 MG CAPSULE. PO SCH ×2 (08:04→14:31)
[2018-10-08] MEDS: LOSARTAN POTASSIUM 50 MG TABLET. PO SCH (08:06)
[2018-10-08] MEDS: SPIRONOLACTONE 25 MG TABLET PO SCH (08:06)
[2018-10-08] MEDS: amLODIPine BESYLATE 10 MG TABLET PO SCH (08:07)
[2018-10-08] MEDS: METOPROLOL SUCC 24HR ER 100 MG TAB.ER.24H. PO SCH (08:07)
[2018-10-08 08:08] VITALS: BP 97/58
--- NOTE | 2018-10-08 14:45 | NUR ---
Spoke with Anabela-dtr [phone] regarding dismissal to home, will come pick her up. Per conversation with Dr. Bassett family had requested outpatient therapy in [place]. Called office per notes [facility] to be agency of choice
--- NOTE | 2018-10-08 15:47 | NUR ---
Family dtr Anabela stated she never spoke to MD about therapy, spoke with Cindy yesterday about therapy. called [facility] pt is out of their network will call MD to see if okay to transfer to [facility]
--- NOTE | 2018-10-08 16:10 | SNU/HH DC ---
DISCHARGE ORDERS DISCHARGE INFORMATION: DISCHARGE DATE: Oct 08, 2018 CONDITION ON DISCHARGE: Stable CODE STATUS: Code Status: Full NURSING HOME: SNF STAY <30 DAYS: Yes POST DISCHARGE ORDERS: ACTIVITY ORDERS: Activity as tolerated WEIGHT BEARING STATUS: As tolerated DIET AFTER DISCHARGE: ADA WOUND/INCISION CARE: No wound care needed CHECKS AFTER DISCHARGE: CHECKS AFTER DISCHARGE: Check blood press - daily, Check blood sugar, ac/hs TREATMENT/EQUIPMENT ORDERS: ADAPTIVE EQUIPMENT NEEDED: None Physical Therapy For: Evalulation/Treatment (Reverse total Shoulder Precautions ) Occupational Therapy For: Evaluation/Treatment (reverse total shoulder precautions) DISCHARGE MEDICATIONS: Home Meds Active Scripts Losartan Potassium (COZAAR ) 50 Mg Tablet, 100 MG PO DAILY, #30 BOT 6 Refills Prov:MEHDI SOLIZ MD 06/24/14 Reported Medications Fluticasone Propionate (Flonase Allergy Relief) 9.9 Ml [place].susp, 1 SPRAYS NS DAILY for ALLERGY CONTROL, BOTTLE 08/24/18 Albuterol Sulfate (PROAIR HFA INHALER) 8.5 Gm Hfa.aer.ad, 2 PUFF INH PRN Q6HRS PRN for SHORTNESS OF BREATH, INHALER 0 Refills 08/24/18 Hydrocodone Bit/Acetaminophen (HYDROCODONE-APAP 5-325 ) 1 Tab Tablet, 1 TAB PO PRN Q4-6HRS PRN for PAIN, TAB 0 Refills 08/24/18 Sucralfate (SUCRALFATE) 1 Gm Tablet, 1 GM PO BID for STOMACH PAIN, TAB 08/24/18 Spironolactone (SPIRONOLACTONE) 25 Mg Tablet, 25 MG PO BID for BP CONTROL, TAB 08/24/18 Omeprazole (OMEPRAZOLE) 20 Mg Tablet.dr, 20 MG PO DAILY for GERD CONTROL, TAB 08/24/18 Metoprolol Succinate (METOPROLOL SUCCINATE ( XL )) 100 Mg Tab.er.24h, 100 MG PO DAILY for FOR HYPERTENSION, #30 TAB 0 Refills 08/24/18 Tramadol Hcl (ULTRAM) 50 Mg Tablet, 1 TAB PO Q6HRS, #30 TAB 11/13/15 Clonidine (CATAPRES-TTS 1) 1 Each Patch.tdwk, 1 EACH TD WEEKLY, PATCH 11/13/15 Amlodipine Besylate (NORVASC) 10 Mg Tablet, 10 MG PO DAILY, TAB 11/13/15 Gabapentin (GABAPENTIN ) 300 Mg Capsule, 300 MG PO TID, CAP 11/13/15 Meloxicam (MOBIC) 7.5 Mg Tablet, 1 TAB PO DAILY, #30 TAB 1 Refill 11/13/15 Sertraline Hcl (SERTRALINE HCL) 100 Mg Tablet, 100 MG PO DAILY, #1.5 09/29/13 Metformin Hcl (METFORMIN HCL) 500 Mg Tablet, 500 MG PO BID 09/29/13 Levothyroxine Sodium (LEVOTHYROXINE SODIUM) 100 Mcg Tablet, 100 MCG PO DAILY for HYPOTHYROID 09/29/13 Aspirin (ASPIRIN) 81 Mg Tab.chew, 81 MG PO DAILY, TAB.CHEW 09/29/13 LUIS MARINELLI MD Oct 08, 2018 16:10
[2018-10-08 17:32] VITALS: BP 101/48
--- NOTE | 2018-10-08 19:01 | NUR ---
Discharged to [facility] per [facility] via w/c, instructions given to facility, right shoulder sling in place, belongings taken with pt.
--- NOTE | 2018-10-09 20:45 | DS ---
DATE OF DISCHARGE: 10/08/2018 DISPOSITION: [facility]. PRINCIPAL DIAGNOSIS: Right rotator cuff arthropathy and periprosthetic fracture. PROCEDURE: Right reverse total shoulder arthroplasty and fixation periprosthetic fracture. DISCHARGE INSTRUCTIONS: Follow up with Dr. Bassett in 2 weeks. DISCHARGE MEDICATIONS: Include hydrocodone 5/325 one p.o. q. 4 hours p.r.n. pain, meloxicam 7.5 mg daily. She will continue preoperative medications of albuterol, amlodipine, baby aspirin, clonidine, fluticasone spray, gabapentin, levothyroxine, losartan, metformin, metoprolol, omeprazole, sertraline, spironolactone, and sucralfate. Discontinue tramadol. BRIEF DESCRIPTION OF HOSPITAL COURSE: The patient underwent reverse shoulder arthroplasty. She was noted to be somewhat unsteady on her transfers with physical therapy. Initially outpatient physical therapy was planned, but she then elected to transfer to a half-way facility. Progressed through the rest of her postoperative course being medically stable. Her dressing was intact. Distal neurovascular status all intact and she was discharged in stable condition. LUIS BASSETT MD DR: MILDRED/santa JOB#: [id number] / [id number]
--- NOTE | 2018-10-12 13:08 | PATHOLOGY ---
[facility] Accession Number: [id number] . 01 Material submitted: . RIGHT HUMERAL HEAD . 02 Diagnosis: Bone, "right humeral head", removal: - Degenerative osteoarthritis. - Bone marrow with trilineage hematopoiesis. . (SKM:mml; 10/08/2018) QL/10/08/2018 . 02 Electronically signed: . Miguel Larios MD, Pathologist NPI- [id number] . 01 Gross description: . The specimen is received in formalin, labeled "Yissel Esquivel, right humeral head", is a dome-shaped trotter-brown bone measuring 4.6 x 3.5 x 0.8 cm. Peripheral osteophytes and eburnation is identified. Drying Room Operator tissue is submitted in A1 after decalcification. ([facility]; 10/06/2018) SHS/SHS . 02 Pathologist provided ICD-10: M19.011 . 02 CPT . 690470, 642940 Specimen Comment: A courtesy copy of this report has been sent to Specimen Comment: [phone], . Specimen Comment: Report sent to / DR WALTON Specimen Comment: A duplicate report has been generated due to demographic updates. Performed at: 01 [facility] [address], [place], [place] [id number] MD Norm Vital MD Phone: [phone] Performed at: 02 [facility] [address] [place], [place] [id number] MD Flash Hodges MD Phone: [phone]
== END 2018-10-08 19:03 | DRG 483 ==
LOC: OPSVCIP 06:58 → 4 SOUTHEST 13:12
PROVIDERS: ADMIT Orthopaedic Surgery; ATTEND Orthopaedic Surgery
PROC: 0RRJ00Z Replacement of Right Shoulder Joint with Reverse Ball and Socket Synthetic Substitute, Open Approach (ICD-10-PCS; principal; 2018-10-06 08:30)
DX: M12.811 Other specific arthropathies, not elsewhere classified, right shoulder (principal); E11.9 Type 2 diabetes mellitus without complications; E03.9 Hypothyroidism, unspecified; I10 Essential (primary) hypertension; E78.5 Hyperlipidemia, unspecified; M79.7 Fibromyalgia; M35.00 Sjogren syndrome, unspecified; K21.9 Gastro-esophageal reflux disease without esophagitis; G47.33 Obstructive sleep apnea (adult) (pediatric); Z96.652 Presence of left artificial knee joint; J45.909 Unspecified asthma, uncomplicated; Z86.73 Personal history of transient ischemic attack (TIA), and cerebral infarction without residual deficits; Z82.49 Family history of ischemic heart disease and other diseases of the circulatory system; Z88.2 Allergy status to sulfonamides; Z88.8 Allergy status to other drugs, medicaments and biological substances; Z90.711 Acquired absence of uterus with remaining cervical stump
CPT/HCPCS: 36415; 73030; 82962; 85610; 85730; 86850; 86900; 86901; 88305; 88311; A7015; C1713; J0330; J0696; J0780; J1100; J1815; J2250; J2270; J2704; J2710; J2795; J3010; J3490; J7030; J7120; Q0164; 97110; 97116; 97530; 97535; C1769

== ENCOUNTER → 2019-06-07 | Outpatient (CLI) | payer OTHER, MEDICAID ==
[~2019-06-07] MED LIST changes: +ACET500T33 PO; +ASCO500C PO; +CHOL100013 PO; -EZET10TA18 PO; +EZET10TA20 PO; +FENO160T PO; +FEXO180T16 PO; -HYDROcodone/APAP 7.5/325MG 1 TAB TABLET PO PRN; +IOHEXOL 180 MG/ML 10 ML VIAL. ONE; +IRON15TA3 PO; +MAGN250T10 PO; +MELO7.5T29 PO; +MINE50OI TP; +TRAM50TA PO; +methylPREDNISolone ACETATE 40 MG/ML VIAL. ONE; +methylPREDNISolone ACETATE 80 MG/ML VIAL. ONE
--- NOTE | 2019-06-07 14:47 | PAIN ---
DATE OF SERVICE: 06/07/2019 PROGRESS NOTE FOR PAIN CLINIC DIAGNOSES: Cervical radiculopathy with cervical degenerative disk disease and cervical spondylosis. HISTORY OF PRESENT ILLNESS: The patient is a 74-year-old female who returns for followup, status post cervical epidural steroid injection x 1, last seen on 12/05/2016. The patient reports she has been doing fairly well, about 90% improvement initially, now about 65% improvement overall, but the pain returning in the base of the neck and upper extremities, mostly on the right side radiating into her shoulder as well as in the biceps and triceps region into the right arm and into the hand and fingers with some numbness and tingling as well. The patient reports no loss of motor function, but significant fatigability in the right upper extremity compared to the left, but present with pain bilaterally in the shoulders as it is worse at night, worse with increased activity, lifting items, doing repetitive motions with the upper extremities, especially with the right arm. The patient reports the pain is a 9 on a scale of 10 at its worst on the past week, 7 on average, 3 at its least during the past week and is a 3 today. The patient reports it is aching, burning, and becoming more constant with activity. No overt loss of motor function, but significant fatigability with repetitive motions or raising her hand over her head on her right side and weightbearing. PHYSICAL EXAMINATION: VITAL SIGNS: The patient's blood pressure 148/68, pulse 101, respirations 18, temperature 98.3 degrees Fahrenheit, height is 5 feet 3 inches, weight is 224 pounds. GENERAL: The patient is awake, alert, oriented, appropriate, very pleasant demeanor. HEENT: Shows normocephalic, atraumatic. Extraocular movements are intact and symmetrical. Oral cavity: Mucous membranes moist and pink. Dentition is intact. NECK: Shows anterior throat supple without palpable lymphadenopathy noted. Swallow reflex symmetrical. CHEST: Shows normal on inspection. Breath sounds clear to auscultation bilaterally. HEART: Shows S1, S2 clear. No murmurs auscultated. ABDOMEN: Soft, nontender, nondistended. No palpable organomegaly is noted. There is no rebound or guarding demonstrated. BACK: Shows spine grossly in the midline. Normal appearing thoracic kyphosis and some minor flattening of lumbar lordotic curvature. Cervical paraspinous muscle shows symmetrical on inspection, on palpation shows some moderate tenderness diffusely in the inferior aspect of the cervical paraspinous muscles bilaterally, but only diffusely without significant radiation. EXTREMITIES: The patient's upper extremities show deep tendon reflexes at 1+ in the biceps and triceps tendons. Motor exam is approximately 4 on a scale of 5 with right x ray developer strength, bicep and tricep flexion is 5/5 on the left. Shoulder shrug is strong and intact without loss of strength on resistance as is abduction of shoulder to 90 degrees without loss of strength on resistance, but with pain reported mostly in the base of the neck on the right side in the shoulder. Peripheral pulses are 2+ radial distribution. No peripheral edema is noted bilaterally. Options were discussed with the patient. The patient's old chart was reviewed as her current medication regimen updated. Current review of systems updated today as well. We will proceed with a cervical epidural steroid injection today with fluoroscopic guidance. Risks were again discussed including, but not limited to bleeding, infection, possibility of epidural hematoma, subsequent neurological compromise, dural puncture, headaches, spinal cord and/or nerve damage, side effects of steroid medication and poor results regarding pain control. The patient understands and wished to proceed. The patient will return to the clinic in approximately 2 weeks for followup. She was counseled on return appointment, activity level and side effects to be aware of. DIAGNOSES: Cervical radiculopathy with cervical degenerative disk disease and cervical spondylosis. PROCEDURE: Cervical epidural steroid injection, translaminar approach at the C6-C7 level using C-arm fluoroscopic guidance under sterile prep and drape using local anesthetic. MEDICATION INJECTED: A total of 120 mg of Depo-Medrol plus 5 mL of preservative-free normal saline and 2 mL of contrast. CONDITION AT DISCHARGE: Stable. The patient tolerated the procedure well, had no complications. JOVANNY AUGUSTINE MD DR: WALTER/santa JOB#: [id number] / [id number]
== END ==
LOC: PNCL 11:23
PROVIDERS: ATTEND Anesthesiology
DX: M50.123 Cervical disc disorder at C6-C7 level with radiculopathy (principal); M47.812 Spondylosis without myelopathy or radiculopathy, cervical region
CPT/HCPCS: 62321; J1030; J1040; Q9965